=== PATIENT | female | born 1960 | race Caucasian/White ===

== ENCOUNTER → 2021-02-23 08:00 | Outpatient (CLI) | payer OTHER ==
[~2021-02-23 08:00] MED LIST: CELEXA20 MG PO; LIPITOR40 M1 PO; METFORMIN HCL500 M3 PO; STEGLATRO15 MG PO
== END | disposition home or self-care (01) ==
LOC: LAB 08:00 → CIR.AMB 02-25 07:00 → EDSTATUS 02-25 07:00 → CIR.AMB 02-25 12:24
PROVIDERS: ATTEND Surgery
DX: C73 Malignant neoplasm of thyroid gland (principal); E21.0 Primary hyperparathyroidism; Z20.828 Contact with and (suspected) exposure to other viral communicable diseases

== ENCOUNTER 2021-05-20 07:14 | Day surgery (SDC) | payer OTHER ==
[2021-05-20] MEDS ORDERED: PERCOCET 5-3251 EACH PO (11:03)
== END 2021-05-20 18:08 | disposition home or self-care (01) ==
LOC: CIR.AMB 07:14
PROVIDERS: ATTEND Surgery
DX: C73 Malignant neoplasm of thyroid gland (principal); E21.0 Primary hyperparathyroidism; E78.5 Hyperlipidemia, unspecified; F41.9 Anxiety disorder, unspecified; Z79.84 Long term (current) use of oral hypoglycemic drugs; E11.9 Type 2 diabetes mellitus without complications